=== PATIENT | female | born 1965 | race Two or more races ===

== ENCOUNTER 2018-05-29 22:51 | Emergency (ER) | payer OTHER ==
[~2018-05-29] VITALS: Ht 157.5 cm; Wt 90.7 kg
[2018-05-29] MEDS ORDERED: MELOXICAM15 MG (23:05)
[2018-05-29] MEDS ORDERED: COZAAR100 MG (23:05)
== END 2018-05-30 04:16 | disposition home or self-care (01) ==
LOC: ER 22:51
DX: R55 Syncope and collapse (principal)